=== PATIENT | male | born 1970 | race Caucasian/White ===

== ENCOUNTER 2020-11-24 20:06 | Emergency (ER) | payer OTHER ==
[~2020-11-24 20:06] MED LIST: AVIDOXY100 MG PO; BUSPAR 10MG10 MG PO; IBUPROFEN800 MG PO; MOBIC7.5 MG PO; NAPROSYN500 MG PO; NEURONTIN 300300 MG PO; NORCO 5-325 TA1 EACH PO; SUBOXONE 8 MG-1 EACH SL; Voltaren Gel 1 % TOP
[2020-11-24] MEDS ORDERED: NORFLEX 100 MG100 MG PO (22:00)
[2020-11-24] MEDS ORDERED: Voltaren Gel 1% TOP (22:00)
== END 2020-11-24 22:20 | disposition home or self-care (01) ==
LOC: ER1 20:06
DX: M54.2 Cervicalgia (principal); M54.9 Dorsalgia, unspecified; F17.210 Nicotine dependence, cigarettes, uncomplicated; V49.40XA Driver injured in collision with unspecified motor vehicles in traffic accident, initial encounter; Y92.410 Unspecified street and highway as the place of occurrence of the external cause
CPT/HCPCS: 71045; 72125; 72131; 99284

== ENCOUNTER 2021-08-01 19:32 | Emergency (ER) | payer OTHER ==
[~2021-08-01 19:32] MED LIST changes: +NORFLEX 100 MG100 MG PO; +Voltaren Gel 1% TOP
== END 2021-08-02 00:44 | disposition home or self-care (01) ==
LOC: ER1 19:32
DX: S16.1XXA Strain of muscle, fascia and tendon at neck level, initial encounter (principal); S39.012A Strain of muscle, fascia and tendon of lower back, initial encounter; F17.200 Nicotine dependence, unspecified, uncomplicated; V43.52XA Car driver injured in collision with other type car in traffic accident, initial encounter; Y92.410 Unspecified street and highway as the place of occurrence of the external cause
CPT/HCPCS: 72125; 72131; 99283

== ENCOUNTER → 2021-10-20 | Outpatient (CLI) | payer OTHER ==
[2021-10-20 12:31] LABS: HEMOGLOBIN 15.1 gm/dl (14.0-17.5); RED BLOOD COUNT 5.37 M/UL (4.20-5.50); WHITE BLOOD COUNT 7.5 K/UL (4.5-11.0)
[2021-10-20 13:14] LABS: BUN/CREATININE RATIO 19 (0-10)
[2021-10-21 08:14] LABS: ANTISTREPTOLYSIN O AB 59.9 IU/mL (0.0-200.0); RHEUMATOID ARTHRITIS FACTOR 20.7 IU/mL (<14.0)
[2021-10-21 09:14] LABS: HBSAG SCREEN Negative (Negative); HCV AB 0.1 (0.0-0.9); HEP A AB, IGM Negative (Negative); HEP B CORE AB, IGM Negative (Negative)
== END ==
LOC: LAB 11:48
PROVIDERS: Nurse Practitioner Family
DX: Z00.00 Encounter for general adult medical examination without abnormal findings (principal); M12.9 Arthropathy, unspecified; R53.83 Other fatigue; E78.5 Hyperlipidemia, unspecified; I10 Essential (primary) hypertension; M25.50 Pain in unspecified joint; Z79.899 Other long term (current) drug therapy
CPT/HCPCS: 36415; 80053; 80061; 80074; 82150; 83690; 84443; 84550; 85027; 85652; 86038; 86060; 86140; 86431